=== PATIENT | female | born 1965 | race American Indian/Alaskan Native ===

== ENCOUNTER 2021-09-13 17:14 | Emergency (ER) | payer OTHER ==
[2021-09-13] MEDS ORDERED: ONDANSETRON 4 MG/2 ML INJ IV ONE (18:04)
[2021-09-13] MEDS ORDERED: MORPHINE 4 MG/1 ML INJ IV ONE (18:04)
--- NOTE | 2021-09-13 18:07 | Emergency Department Report ---
ED Abdominal Pain HPI - General Chief Complaint: Abdominal Pain Stated Complaint: ABDOMINAL PAIN Time Seen by Provider: 09/13/21 17:54 Source: patient Mode of arrival: Ambulatory Limitations: No Limitations - History of Present Illness Initial Comments: Patient is 55 years old female with history of hypertension. Patient presented to the ER complaining of right lower quadrant pain and suprapubic abdominal pain that started last night. Patient described her pain as sharp with no radiation. Patient denied any nausea or vomiting. Patient also noticed a rash extending from the mid lower back to the mid suprapubic area since yesterday. MD Complaint: abdominal pain -: Last night Location: RLQ, suprapubic Radiation: none Migration to: no migration Severity scale (0 -10): 9 - Related Data Allergies Allergy/AdvReac Type Severity Reaction Status Date / Time No Known Allergies Allergy Unverified 09/13/21 17:26 ED Review of Systems ROS: Stated complaint: ABDOMINAL PAIN Other details as noted in HPI Comment: All other systems reviewed and negative Constitutional: denies: chills, fever Respiratory: denies: cough, shortness of breath, SOB with exertion Cardiovascular: denies: chest pain, palpitations Gastrointestinal: abdominal pain. denies: nausea, vomiting, diarrhea, constipation, hematemesis, melena, hematochezia Musculoskeletal: denies: back pain Skin: rash, lesions Neurological: denies: headache, weakness, numbness, paresthesias, confusion, abnormal gait ED Physical Exam - General Limitations: No Limitations General appearance: alert, in no apparent distress - Head Head exam: Present: atraumatic, normocephalic, normal inspection - Eye Eye exam: Present: normal appearance - ENT ENT exam: Present: normal exam, normal orophraynx, mucous membranes moist - Neck Neck exam: Present: normal inspection, full ROM. Absent: tenderness, meningismus - Respiratory Respiratory exam: Present: normal lung sounds bilaterally - Cardiovascular Cardiovascular Exam: Present: regular rate, normal rhythm, normal heart sounds - GI/Abdominal GI/Abdominal exam: Present: soft, tenderness, normal bowel sounds, other (shingle like rash). Absent: distended, guarding, rebound, rigid, organomegaly, mass, bruit, pulsatile mass, hernia - Extremities Exam Extremities exam: Present: normal inspection, full ROM, normal capillary refill. Absent: tenderness - Back Exam Back exam: Present: normal inspection, full ROM. Absent: CVA tenderness (R), CVA tenderness (L) - Neurological Exam Neurological exam: Present: alert, oriented X3, CN II-XII intact, normal gait - Psychiatric Psychiatric exam: Present: normal mood - Skin Skin exam: Present: warm, intact, rash, vesicles ED Course Vital Signs 09/13/21 17:23 Temperature 97.8 F Pulse Rate 102 H Respiratory 16 Rate Blood Pressure 174/109 [Left] O2 Sat by Pulse 100 Oximetry ED Medical Decision Making - Lab Data Result diagrams: 09/13/21 18:13 09/13/21 18:13 - Radiology Data Radiology results: report reviewed - Medical Decision Making Patient is 55 years old female with history of hypertension. Patient presented to the ER complaining of right lower quadrant pain and suprapubic abdominal pain that started last night. Patient described her pain as sharp with no radiation. Patient denied any nausea or vomiting. Patient also noticed a rash extending from the mid lower back to the mid suprapubic area since yesterday. Patient received morphine and Zofran. Labs reviewed and is unremarkable. CT abdomen and pelvis with IV contrast showed no acute abnormalities. Patient rash is typical for herpes zoster. Patient given prescription for Valtrex, [place] and Zofran and advised to follow-up with her primary doctor in the next 2 to 3 days and to return to the ER if she develop any new symptoms. Critical care attestation.: If time is entered above; I have spent that time in minutes in the direct care of this critically ill patient, excluding procedure time. ED Disposition Clinical Impression: Acute abdominal pain, Herpes zoster Disposition: HOME / SELF CARE / HOMELESS Is pt being admited?: No Condition: Stable Instructions: Abdominal Pain (ED), Abdominal Pain, Adult, [id number], Shingles, [id number] Referrals: PRIMARY CARE, [Primary Care Provider] - 3-5 Days
[2021-09-13 19:01] LABS: Mean Corpuscular HGB Conc 31 % (30-34); Mean Corpuscular Volume 77 fl (79-97); Platelet Count 262 K/mm3 (140-440); Red Blood Count 5.28 M/mm3 (3.65-5.03); Red Cell Distribution Width 15.5 % (13.2-15.2)
[2021-09-13 19:20] LABS: Alanine Aminotransferase 29 units/L (7-56); Albumin 4.4 g/dL (3.9-5); Blood Urea Nitrogen 13 mg/dL (7-17); Calcium 9.3 mg/dL (8.4-10.2); Hemolysis Index 14
[2021-09-13 19:21] LABS: Bilirubin,Urine NEG (Negative); Blood,Urine NEG (Negative); Color,Urine Yellow (Yellow); Mucus,Urine FEW /HPF; Protein,Urine <15 mg/dL mg/dL (Negative); Urobilinogen,Urine < 2.0 mg/dL (<2.0)
[2021-09-13 19:32] LABS: BUN/Creatinine Ratio 26; Bilirubin,Direct < 0.2 mg/dL (0-0.2)
[2021-09-13 19:33] LABS: Hematocrit 40.9 % (30.3-42.9); Hemoglobin 12.5 gm/dl (10.1-14.3)
--- NOTE | 2021-09-13 21:04 | Cat Scan Report ---
CT ABDOMEN AND PELVIS WITH CONTRAST INDICATION: abdominal pain CONTRAST: 100 cc Omnipaque 300 IV COMPARISON: None available. All CT scans at this location are performed using CT dose reduction for ALARA by means of automated e xposure control. FINDINGS: Lung bases are clear of infiltrates. A tiny peripheral nodule measuring 3 mm is seen along the pleural surface posterior medially in the right lower lobe with a 2 mm nodule seen in the adjacen t lower lobe. No pneumoperitoneum is seen. Liver shows several cysts as well as a lesion posteriorly in the right lobe which is not a simple cyst and is likely a hemangioma with what appears to be peripheral probabl e enhancement. This measures 2.4 cm. Minimal cortical probable cyst is seen in the right kidney. No o ther abdominal masses are noted. No lymphadenopathy is seen. No evidence of bowel obstruction is note d. Mild colonic diverticulosis is seen without evidence of diverticulitis. Gallbladder and bile ducts appear within normal limits. No urinary obstructive changes are seen. Appendix is nonvisualized. No inflammatory changes are seen. No free fluid is noted. No pelvic masses are seen. Uterus appears to b een removed. Slight haziness at the root of the mesentery with a few small nodes is nonspecific thoug h could represent mild mesenteric adenitis. No bowel wall thickening or other bowel lesions are seen. IMPRESSION: 1. No definite acute abnormalities are seen 2. See comments above concerning the root of the mesentery 3. Tiny right lower lobe nodule of questionable significance. See below. 4. Probable hemangioma in the liver. Recommend follow-up. INCIDENTAL PULMONARY NODULE RECOMMENDATIONS Solid Nodule size* <6 mm -- Single or Multiple - Low Risk Patient: No routine follow-up - High Risk Patient: Optional CT at 12 months Note These recommendations do not apply to lung cancer screening, patients with immunosuppression, o r patients with known primary cancer. Note Newly detected indeterminate nodule in persons 35 years of age or older. Persons under the age of 35 should not receive follow-up unless there is a known primary cancer. Low Risk Patient -- minimal or absent history of smoking and of other known risk factors. High Risk Patient -- history of smoking or of other known risk factors. *Dimensions are average of long and short axes, rounded to the nearest millimeter. Based on 2017 Fleischner Society Guidelines found in Radiology 2017 284:228-243. https://doi.[email or web address] [email or web address] Signer Name: Yovanny Kemp MD Signed: 09/13/2021 8:59 PM Workstation Name: [id number][id number]
[2021-09-13 21:58] VITALS: BP 150/90
[2021-09-14 00:46] LABS: Hypochromasia 1+; Total Cells Counted 100
[2021-09-14 00:47] LABS: Platelet Estimate Consistent w Auto; RBC Morphology Normal
--- NOTE | 2021-09-14 18:35 | Electrocardiograph Report ---
[facility] Test Date: 2021-09-13 Test Time: 17:22:51 Pat Name: JUANITO RODRIGUEZ Department: Room: Gender: F Institution Director: BENJAMIN : 1965 Requested By: KONRAD PAGE Order Number: [id number] Reading MD: Davin Reynolds Measurements Intervals [place] Rate: 93 P: 43 VT: 153 QRS: 10 QRSD: 72 T: 23 QT: 351 QTc: 437 Interpretive Statements Sinus rhythm Low voltage, precordial leads No previous ECG available for comparison Electronically Signed On 09-14-2021 18:34:59 EST by Davin Reynolds
== END 2021-09-13 21:57 | disposition home or self-care (01) ==
LOC: ED 17:14
DX: R10.31 Right lower quadrant pain (principal); B02.9 Zoster without complications
CPT/HCPCS: 36415; 74177; 80048; 80076; 81001; 83690; 84484; 85007; 85025; 93005; 96374; 96375; 99284; J2270; J2405; Q9967